=== PATIENT | female | born 1950 | race African-American/Black ===

== ENCOUNTER 2021-09-22 21:38 | Inpatient (IN) | payer OTHER ==
[2021-09-22] MEDS ORDERED: morphine CARPU-JECT 4 MG/1 ML DISP.SYRIN IVPUSH ONE (22:42)
[2021-09-22] MEDS ORDERED: morphine SULFATE 4 MG/ML VIAL ONE (23:19)
[2021-09-22 23:57] LABS: RBC 3.91 M/mm3 (3.60-5.2)
[2021-09-22 23:58] LABS: HEMATOCRIT 27.7 % (32.4-45.2); MCH 23.1 pg (25.7-33.7); MCHC 32.6 g/dl (32.0-36.0); MEAN CELL VOLUME 70.7 fl (80-96); PLATELET COUNT 412 10^3/uL (134-434); RDW 20.2 % (11.6-15.6)
[2021-09-23 00:17] LABS: BLOOD UREA NITROGEN 8.4 mg/dL (7-18); CALCIUM 8.3 mg/dL (8.5-10.1)
[2021-09-23 00:18] LABS: ALBUMIN 2.5 g/dl (3.4-5.0)
[2021-09-23 00:20] LABS: CREATININE 0.7 mg/dL (0.55-1.3)
[2021-09-23 00:22] LABS: BILIRUBIN,TOTAL 0.4 mg/dL (0.2-1); TOT PROT 6.7 g/dl (6.4-8.2)
[2021-09-23] MEDS ORDERED: morphine CARPU-JECT 4 MG/1 ML DISP.SYRIN IVPUSH ONE (00:27)
[2021-09-23] MEDS: MAG HYDROX/ALH/SMC/DPHA/LIDO 240 ML MOUTHWASH MM SCH ×5 (00:36→23:10)
[2021-09-23] MEDS: prednisoLONE SODIUM PHOSPHATE 15 MG/5 ML ORAL SOLN BOTTLE PO ONE ×2 (00:36→01:06)
[2021-09-23] MEDS ORDERED: morphine SULFATE 4 MG/ML VIAL ONE (00:38)
[2021-09-23] MEDS ORDERED: methylPREDNISolone NA SUCC 125 MG/2 ML VIAL IVPB ONE (00:41)
[2021-09-23] MEDS ORDERED: methylPREDNISolone NA SUCC 125 MG/2 ML VIAL ONE (00:45)
[2021-09-23] MEDS ORDERED: VANCOMYCIN 1 GM in D5W (PRE-DOCKED) 1,000 MG/250 ML IVPB ONE (00:52)
[2021-09-23 01:11] LABS: ANISOCYTOSIS 2+; MACROCYTOSIS 0; ROULEAU 2+
[2021-09-23] MEDS ORDERED: VANCOMYCIN 1 GRAM (PRE-DOCKED) 1,000 MG/250 ML BAG IVPB ONE (02:25)
[2021-09-23] MEDS ORDERED: ALBUTEROL SO4 2.5/IPRATROPIUM 0.5 INH SOL 3 ML VIAL.NEB. NEB PRN (04:11)
[2021-09-23] MEDS ORDERED: MAG HYDROX/ALH/SMC/DPHA/LIDO 240 ML MOUTHWASH MM SCH (06:00)
[2021-09-23] MEDS ORDERED: prednisoLONE SODIUM PHOSPHATE 15 MG/5 ML ORAL SOLN BOTTLE PO SCH (06:30)
[2021-09-23 07:53] LABS: HEMATOCRIT 27.6 % (32.4-45.2); MCH 22.9 pg (25.7-33.7); MCHC 32.6 g/dl (32.0-36.0); MEAN CELL VOLUME 70.2 fl (80-96); MEAN PLT VOLUME 6.8 fl (7.5-11.1); PLATELET COUNT 407 10^3/uL (134-434); RBC 3.93 M/mm3 (3.60-5.2); WHITE BLOOD COUNT 13.8 K/mm3 (4.0-10.0)
[2021-09-23 08:09] LABS: CALCIUM 8.4 mg/dL (8.5-10.1)
[2021-09-23 08:10] LABS: ALBUMIN 2.4 g/dl (3.4-5.0); BLOOD UREA NITROGEN 9.3 mg/dL (7-18); MAGNESIUM 2.4 mg/dL (1.8-2.4)
[2021-09-23 08:12] LABS: BILIRUBIN,TOTAL 0.4 mg/dL (0.2-1)
[2021-09-23 08:13] LABS: CREATININE 0.7 mg/dL (0.55-1.3); PHOSPHOROUS 2.7 mg/dL (2.5-4.9); TOT PROT 6.7 g/dl (6.4-8.2)
[2021-09-23] MEDS: HYDROmorphone HCl 2 MG/ML VIAL IVPB PRN ×3 (09:01→16:48)
[2021-09-23] MEDS ORDERED: predniSONE 5 MG/5 ML ORAL SOLN- UNIT-DOSE CUP PO SCH (10:00)
[2021-09-23] MEDS: ENOXAPARIN NA (PORCINE) 40 MG/0.4 ML DISP.SYRIN SQ SCH (12:39)
[2021-09-23] MEDS: prednisoLONE SODIUM PHOSPHATE 15 MG/5 ML ORAL SOLN BOTTLE PO SCH (12:39)
[2021-09-23] MEDS: AZTREONAM 1 GM in DEXTROSE 5%-WATER - 50 ML IVPB SCH ×2 (14:30→18:35)
[2021-09-23] MEDS ORDERED: AZTREONAM 1 GM VIAL (RESTRICTED TO ID) ONE ×2 (14:49→17:45)
[2021-09-23] MEDS ORDERED: DEXTROSE 5%-WATER - 50 ML IVPB ONE ×2 (14:50→17:46)
[2021-09-23] MEDS: VANCOMYCIN/WATER FOR INJ (PEG) 1,000 MG/200 ML BAG IVPB SCH (16:00)
[2021-09-23] MEDS: VITAMINS A AND D TOPICAL OINTMENT 60 GM TUBE TP SCH ×2 (18:33→23:11)
[2021-09-23] MEDS: morphine SULFATE 4 MG/ML VIAL IVPUSH PRN (21:01)
[2021-09-24] MEDS: VANCOMYCIN/WATER FOR INJ (PEG) 1,000 MG/200 ML BAG IVPB SCH ×2 (01:51→14:45)
[2021-09-24] MEDS: morphine SULFATE 4 MG/ML VIAL IVPUSH PRN ×2 (02:21→16:23)
[2021-09-24] MEDS: AZTREONAM 1 GM in DEXTROSE 5%-WATER - 50 ML IVPB SCH ×3 (03:26→17:08)
[2021-09-24] MEDS: ACETAMINOPHEN 1000 MG/100 ML BAG IVPB PRN ×2 (04:18→19:00)
[2021-09-24] MEDS: HYDROmorphone HCl 2 MG/ML VIAL IVPB PRN (04:54)
[2021-09-24] MEDS: MAG HYDROX/ALH/SMC/DPHA/LIDO 240 ML MOUTHWASH MM SCH ×3 (05:21→17:08)
[2021-09-24] MEDS: VITAMINS A AND D TOPICAL OINTMENT 60 GM TUBE TP SCH ×3 (05:21→17:08)
[2021-09-24] MEDS ORDERED: FUROSEMIDE 40 MG/4 ML INJECTABLE VIAL ONE (08:33)
[2021-09-24] MEDS ORDERED: DEXTROSE 5%-WATER - 50 ML IVPB ONE ×2 (09:38→16:08)
[2021-09-24] MEDS ORDERED: AZTREONAM 1 GM VIAL (RESTRICTED TO ID) ONE ×2 (09:38→16:08)
[2021-09-24] MEDS: prednisoLONE SODIUM PHOSPHATE 15 MG/5 ML ORAL SOLN BOTTLE PO SCH (10:45)
[2021-09-24] MEDS: ENOXAPARIN NA (PORCINE) 40 MG/0.4 ML DISP.SYRIN SQ SCH (10:45)
[2021-09-24] MEDS ORDERED: ALBUTEROL SO4 HFA INHALER IH PRN (12:58)
[2021-09-25] MEDS: MAG HYDROX/ALH/SMC/DPHA/LIDO 240 ML MOUTHWASH MM SCH ×4 (00:48→17:49)
[2021-09-25] MEDS: VITAMINS A AND D TOPICAL OINTMENT 60 GM TUBE TP SCH ×4 (00:48→17:51)
[2021-09-25] MEDS ORDERED: AZTREONAM 1 GM VIAL (RESTRICTED TO ID) ONE ×3 (00:54→17:39)
[2021-09-25] MEDS ORDERED: DEXTROSE 5%-WATER - 50 ML IVPB ONE ×3 (00:55→17:39)
[2021-09-25] MEDS: AZTREONAM 1 GM in DEXTROSE 5%-WATER - 50 ML IVPB SCH ×3 (01:16→17:49)
[2021-09-25] MEDS: VANCOMYCIN/WATER FOR INJ (PEG) 1,000 MG/200 ML BAG IVPB SCH ×2 (02:02→14:43)
[2021-09-25] MEDS: HYDROmorphone HCl 2 MG/ML VIAL IVPB PRN (04:25)
[2021-09-25] MEDS: morphine SULFATE 4 MG/ML VIAL IVPUSH PRN ×3 (10:08→21:07)
[2021-09-25] MEDS: prednisoLONE SODIUM PHOSPHATE 15 MG/5 ML ORAL SOLN BOTTLE PO SCH (10:38)
[2021-09-25] MEDS: ENOXAPARIN NA (PORCINE) 40 MG/0.4 ML DISP.SYRIN SQ SCH (10:39)
[2021-09-25 15:19] VITALS: BMI 20.1
[2021-09-25] MEDS ORDERED: AMINO ACIDS/PROTEIN HYDROLYS 30 ML LIQUID.PKT PO SCH (17:30)
[2021-09-25] MEDS ORDERED: ASCORBIC ACID 250 MG TABLET (FP) PO SCH (22:00)
[2021-09-25] MEDS ORDERED: ACETAMINOPHEN 325 MG TABLET (FP) PO PRN (23:40)
[2021-09-26] MEDS: HYDROmorphone HCl 2 MG/ML VIAL IVPB PRN (00:03)
[2021-09-26] MEDS: MAG HYDROX/ALH/SMC/DPHA/LIDO 240 ML MOUTHWASH MM SCH (01:12)
[2021-09-26] MEDS: VITAMINS A AND D TOPICAL OINTMENT 60 GM TUBE TP SCH (01:13)
[2021-09-26] MEDS ORDERED: AZTREONAM 1 GM VIAL (RESTRICTED TO ID) ONE (01:25)
[2021-09-26] MEDS ORDERED: DEXTROSE 5%-WATER - 50 ML IVPB ONE (01:26)
[2021-09-26] MEDS: AZTREONAM 1 GM in DEXTROSE 5%-WATER - 50 ML IVPB SCH (01:49)
[2021-09-26] MEDS: VANCOMYCIN/WATER FOR INJ (PEG) 1,000 MG/200 ML BAG IVPB SCH (03:31)
[2021-09-26 04:22] VITALS: BP 139/64; PULSE 79; TEMP 97.6
[2021-09-26] MEDS ORDERED: MULTIVITAMINS (DAILY MVI) TABLET (FP) PO SCH (10:00)
[2021-09-26] MEDS ORDERED: ZINC SULFATE 220 MG CAPSULE (FP) PO SCH (10:00)
== END 2021-09-26 04:20 | disposition short-term general hospital (02) | DRG 607 ==
LOC: JER 21:38 → JERBED 09-23 00:05 → J7W 09-23 06:17
PROVIDERS: ADMIT Hospitalist; ATTEND Internal Medicine
DX: Q81.8 Other epidermolysis bullosa (principal); L03.116 Cellulitis of left lower limb; F11.20 Opioid dependence, uncomplicated; C93.10 Chronic myelomonocytic leukemia not having achieved remission; J44.9 Chronic obstructive pulmonary disease, unspecified; I10 Essential (primary) hypertension; Z86.73 Personal history of transient ischemic attack (TIA), and cerebral infarction without residual deficits; Z86.16 Personal history of COVID-19; Z88.0 Allergy status to penicillin; D50.9 Iron deficiency anemia, unspecified; M25.531 Pain in right wrist; K12.30 Oral mucositis (ulcerative), unspecified
CPT/HCPCS: 36415; 73090-TC-RT-FY; 73110-TC-RT-FY; 73130-TC-RT-FY; 80053; 83735; 84100; 85025; 85027; 87040; 87070; 87205; 93005; 93010; 94640; 99285-25; C9803; U0003; U0005